=== PATIENT | male | born 1935 | race Native Hawaiian/Other Pacific Islander ===

== ENCOUNTER 2023-04-21 14:09 | Day surgery (SDC) | payer MEDICARE, BC, OTHER ==
[~2023-04-21] VITALS: Ht 170.2 cm; Wt 53.6 kg
[~2023-04-21 14:09] MED LIST: KEPP1TAB PO; LEVE500T5 PO; LEVO50TA5 PO; LR 1,000 ML IV SCH; ROSU5TAB5 PO; VITA500C24 PO; VITAD400CA PO; XARE15TA PO; ceFAZolin SOD 2 GM in IV 1 EA IV ONE
[2023-04-21] MEDS ORDERED: LR 1,000 ML IV SCH (15:35)
[2023-04-21] MEDS ORDERED: LIDOCAINE 1% SDV 30ML VIAL As Ordered ONE (15:39)
[2023-04-21] MEDS ORDERED: propofoL 200 MG/20 ML VIAL As Ordered ONE (15:50)
[2023-04-21] MEDS ORDERED: fentaNYL 100 MCG/2 ML INJECTION As Ordered ONE (15:50)
[2023-04-21] MEDS ORDERED: LIDOCAINE 2% 100MG/5ML SDV (FOR ANES.) As Ordered ONE (15:50)
[2023-04-21] MEDS ORDERED: MIDAZOLAM INJ 2MG/2ML VIAL As Ordered ONE (15:50)
[2023-04-21] MEDS ORDERED: ONDANSETRON 4MG 2ML VIAL As Ordered ONE (15:50)
[2023-04-21] MEDS ORDERED: ACETAMINOPHEN 1000MG 100ML IV BAG As Ordered ONE (16:12)
[2023-04-21 17:35] VITALS: BP 132/70; TEMP 97.6; O2SAT 97
== END 2023-04-21 17:40 | disposition home or self-care (01) ==
LOC: M SDC 14:09
PROVIDERS: ATTEND Internal Medicine Cardiovascular Disease
DX: Z45.010 Encounter for checking and testing of cardiac pacemaker pulse generator [battery] (principal); I48.0 Paroxysmal atrial fibrillation; I25.10 Atherosclerotic heart disease of native coronary artery without angina pectoris; R56.9 Unspecified convulsions; J44.9 Chronic obstructive pulmonary disease, unspecified; E03.9 Hypothyroidism, unspecified; Z95.1 Presence of aortocoronary bypass graft; Z79.01 Long term (current) use of anticoagulants; Z79.899 Other long term (current) drug therapy; Z79.890 Hormone replacement therapy; Z88.8 Allergy status to other drugs, medicaments and biological substances
CPT/HCPCS: 33228; C1785; J0131; J0690; J1100; J2250; J2405; J3010